=== PATIENT | male | born 1965 | race Caucasian/White ===

== ENCOUNTER 2019-02-17 13:03 | Emergency (ER) | payer MEDICARE ==
[~2019-02-17] VITALS: Ht 190.5 cm; Wt 106.8 kg
[2019-02-17 13:09] VITALS: Ht 190.5 cm; Wt 106.8 kg
[2019-02-17] MEDS ORDERED: OMEPRAZOLE20 M1 PO (13:11)
[2019-02-17] MEDS ORDERED: TEMAZEPAM30 MG PO (13:12)
[2019-02-17] MEDS ORDERED: NORVASC10 MG PO (13:12)
[2019-02-17] MEDS ORDERED: BAYER CHEWABLE81 MG PO (13:13)
[2019-02-17] MEDS ORDERED: ZOLOFT25 MG PO (13:13)
[2019-02-17] MEDS ORDERED: TORADOL10 MG PO (14:52)
[2019-02-17 15:05] VITALS: BP 150/83
== END 2019-02-17 15:06 | disposition home or self-care (01) ==
LOC: D.ER 13:03
DX: M75.92 Shoulder lesion, unspecified, left shoulder (principal)

== ENCOUNTER → 2019-12-28 08:22 | Outpatient (CLI) | payer MEDICARE ==
[2019-02-17 13:09] VITALS: BMI 29.4
[~2019-12-28 08:22] MED LIST: BAYER CHEWABLE81 MG PO; NORVASC10 MG PO; OMEPRAZOLE20 M1 PO; TEMAZEPAM30 MG PO; TORADOL10 MG PO; ZOLOFT25 MG PO
== END | disposition home or self-care (01) ==
LOC: D.CT 12-23 13:30
PROVIDERS: ATTEND Physical Medicine & Rehabilitation Pain Medicine
DX: M25.511 Pain in right shoulder (principal); M25.561 Pain in right knee; M54.16 Radiculopathy, lumbar region

== ENCOUNTER 2020-03-18 11:37 | Emergency (ER) | payer MEDICARE ==
[~2020-03-18] VITALS: Ht 190.5 cm; Wt 108.2 kg
[2020-03-18 11:42] VITALS: Ht 190.5 cm; Wt 108.2 kg
[2020-03-18] MEDS ORDERED: TRAZODONE HCL150 MG PO (11:44)
[2020-03-18 12:13] LABS: BASOPHILS 0.3 % (0-2); EOSINOPHILS 0.5 % (0-7); HEMATOCRIT 47.3 % (42.0-54.0); HEMOGLOBIN 16.1 g/dL (13.5-17.5); IMMATURE GRANULOCYTES 0.2 % (0-5); LYMPHOCYTES 23.1 % (15-50); MCH 31.7 pg (26.0-34.0); MCV 93.1 fL (80.0-100.0); MEAN PLATELET VOLUME 9.8 fL (7.4-10.4); MONOCYTES 7.2 % (2-11); NEUTROPHILS 68.7 % (40-80); PLATELET COUNT 252 10x3/uL (130-400); RBC 5.08 10x6/uL (4.20-6.10); RDW 13.4 % (11.5-14.5); WBC 10.8 10x3/uL (4.8-10.8)
[2020-03-18 12:15] LABS: APTT 25.7 SECONDS (22.8-39.4); INR 0.91 (0.85-1.17); PROTIME 12.2 SECONDS (11.6-15.0)
[2020-03-18 12:16] LABS: ANION GAP 9.8 mmol/L (8-16); CALCIUM 9.2 mg/dL (8.5-10.1); CARBON DIOXIDE 27.1 mmol/L (21.0-32.0); CREATININE - SERUM 1.3 mg/dL (0.6-1.3); POTASSIUM - SERUM 3.9 mmol/L (3.5-5.1)
[2020-03-18 12:21] LABS: ALBUMIN 4.3 g/dL (3.4-5.0); BILIRUBIN - TOTAL 0.46 mg/dL (0.2-1.3)
[2020-03-18] MEDS ORDERED: HYDROCODON-ACE1 EA10 PO (14:41)
[2020-03-18] MEDS ORDERED: STERAPRED DS 1010 MG PO (14:41)
[2020-03-18] MEDS ORDERED: FLAGYL500 MG PO (14:41)
[2020-03-18 15:40] VITALS: BP 140/90
== END 2020-03-18 15:40 | disposition home or self-care (01) ==
LOC: D.ER 11:37
PROVIDERS: Family Medicine
DX: K51.90 Ulcerative colitis, unspecified, without complications (principal); K92.2 Gastrointestinal hemorrhage, unspecified; N28.9 Disorder of kidney and ureter, unspecified; I10 Essential (primary) hypertension; Z95.0 Presence of cardiac pacemaker; M54.5 Low back pain; R10.9 Unspecified abdominal pain